=== PATIENT | male | born 1955 | race Caucasian/White ===

== ENCOUNTER 2016-05-23 00:29 | Day surgery (SDC) | payer OTHER ==
[2016-05-23] VITALS (9 sets, daily range): BP systolic 110–123; BP diastolic 70–79; PULSE 56–66; RESP 13–18; O2SAT 94–96
[~2016-05-23 00:29] MED LIST: ASCO500C6 PO; ASPI325T32 PO; ATOR20TA PO; CHOL100043 PO; CLOP75TA3 PO; METO25TA6 PO; MULT-1018 PO; VARE1TAB22 PO
[2016-05-23 11:19] LABS: BASOPHILS % (AUTO) 0.5 % (0-3); EOSINOPHILS % (AUTO) 3.8 % (0-5); MONOCYTES % (AUTO) 6.1 % (4-12); Mean Corpuscular Volume 85.2 fL (81-100); Platelet Count 178 bil/L (150-400)
[2016-05-23 11:31] LABS: INR 0.96 ratio
[2016-05-23] MEDS ORDERED: Heparin 1,000 Unit/mL 10 mL Inj ONE (12:30)
[2016-05-23] MEDS ORDERED: Heparin 5,000 Units/500 mL NS Premix IV ONE (12:30)
[2016-05-23] MEDS ORDERED: fentaNYL-PF 50 mCg/mL 2 mL Inj ONE ×2 (12:47→13:40)
--- NOTE | 2016-05-23 16:12 | DRSVH ---
PROCEDURE: ANGIO,EXTREM BILATERAL (PNL) INDICATIONS: PVD COMPARISON: [facility], MR, MR ANGIO RUNOFF, 05/14/2016, 8:32. [facility], X A, ANGIO,EXTREM BILATERAL (PNL), 01/13/2015, 13:20. Fluoroscopy time: 2.0 minutes Technique: 1. Conscious sedation for 60 minutes. 2. Retrograde access of the bilateral common femoral arteries. 3. Pelvic arteriogram. 4. Balloon angioplasty of the bilateral iliac arteries. 5. Completion arteriogram. 6. Bilateral sheath removal, external closure device placement, and hemostasis. The indications, alternatives, benefits, risks, and complications of the procedure were explained to the patient.. Informed written consent was obtained and placed in the chart. The patient was mary t to the angiography suite, and conscious sedation was administered intravenously by senior living staff, while continuous cardiorespiratory monitoring was performed. Maximum sterile barrier technique was employed per standard protocol, including hand hygiene, cap, ma sk, sterile gown and gloves, and 2% chlorhexidine. Sterile ultrasound probe cover was also utilized. 1% lidocaine was used to anesthetize the skin over the left common femoral artery. Using a micropun cture kit, the left common femoral artery was accessed in a retrograde fashion. 1% lidocaine was used to anesthetize the skin over the right common femoral artery. Using a micropuncture kit and sonograp hic guidance, the right common femoral artery was accessed in a retrograde fashion. The bilateral ochoa ropuncture sheaths were exchanged for 6 Sudanese sheath. A 35 wires were advanced into the abdominal ao rta. A 5 Sudanese pigtail catheter was advanced through the right femoral sheath. The wire was removed, and pelvic arteriogram was performed. Next, balloon angioplasty was performed simultaneously for eric noses within the bilateral common iliac arteries. A 7 mm x 40 mm high pressure balloon was used on th e right and a 8mm by 40 mm high-pressure balloon was used on the left. Angiogram was performed. The s heaths were moved, external closure devices were deployed, and hemostasis was achieved. FINDINGS: Initial arteriogram demonstrates a moderate to high-grade stenosis at the origin of the ri ght common femoral artery and a moderate grade stenosis at the origin of the left common femoral cristobal ry. Upon completion arteriogram. Both stenoses have completely resolved. As before, mural irregularit y is visualized within the infrarenal abdominal aorta. IMPRESSION: 1. Successful balloon angioplasty of focal stenoses within the inflow of the bilateral iliac arteries within the existing iliac stents. Dictated by: Sulema Robins M.D. on 05/23/2016 at 16:04 Approved by: Sulema Robins M.D. on 05/23/2016 at 16:10
--- NOTE | 2016-05-23 16:47 | NUR ---
Pt off bedrest at 16:10.He has ambulated and sat up at bedside. Bilateral groin sites remain intact, no bleeding, oozing or hematoma. discharge instructions reviewed and patient discharged ambulatory with his son present to drive him home.
[2016-06-06] MEDS ORDERED: ROSU5TAB9 PO (19:16)
== END 2016-05-23 23:59 | disposition home or self-care (01) ==
LOC: SOUO 00:29
PROVIDERS: ATTEND Radiology Vascular & Interventional Radiology
DX: T82.856A Stenosis of peripheral vascular stent, initial encounter (principal); I25.10 Atherosclerotic heart disease of native coronary artery without angina pectoris; I73.9 Peripheral vascular disease, unspecified; F17.210 Nicotine dependence, cigarettes, uncomplicated; E78.5 Hyperlipidemia, unspecified; Z95.5 Presence of coronary angioplasty implant and graft; Z79.82 Long term (current) use of aspirin; E78.6 Lipoprotein deficiency; Y84.8 Other medical procedures as the cause of abnormal reaction of the patient, or of later complication, without mention of misadventure at the time of the procedure
CPT/HCPCS: 36415; 37220; 75716; 80048; 85025; 85610; 99152; 99153; C1725; C1760; C1769; J1644; J2250; J3010; Q9967

== ENCOUNTER 2016-06-07 01:13 | Day surgery (SDC) | payer OTHER ==
[~2016-06-07 01:13] MED LIST changes: -ATOR20TA PO; -CLOP75TA3 PO; -METO25TA6 PO; +ROSU5TAB9 PO
--- NOTE | 2016-06-07 12:38 | NUR ---
post op Pt visited for post op visited, VSS on RA, pt states that he is able to walk without the same pain that he had before.
--- NOTE | 2016-06-07 15:09 | DRSVH ---
PROCEDURE: RADIOLOGIST CONSULT FOLLOW UP COMPARISON: [facility], , RADIOLOGIST CONSULT FOLLOW UP, 05/21/2016, 9:54. ID & CHIEF COMPLAINT: Mr. Laguerre is a 60-year-old gentleman who presents to followup after recent bila teral iliac artery angioplasty on 05/23/16. HISTORY OF PRESENT ILLNESS: The patient states that his claudication symptoms have entirely resolved after the bilateral angioplasty. He has been able to walk indefinitely without recurrent cramping or pain in his lower extremities. He denies any hematoma or other complication after the recent bilatera l angioplasty. SOCIAL HISTORY: The patient spelled of cigarettes is noted today. We had a 10 minute discussion about smoking cessation and the importance for his health. ALLERGIES: No known allergies. MEDICATIONS: Medication list on file (in PACS documents) and reviewed. REVIEW OF SYSTEMS: The patient denies any numbness or tingling in his extremities, and a groin hemato ma, any change in bowel habits, any change in mentation. Any respiratory changes, cough, rhonchi, or Rales. He states his claudication symptoms have resolved. FOCUSED PHYSICAL EXAM: Vital signs: Heart rate: 75, respiratory rate: 17, oxygen saturation: 96% on room air, pain: 0/10, temperature: 98 .2F Pulses: Right dorsalis pedis: 1+ Right tibialis posterior: 1+ Left dorsalis pedis: 1 Left tibialis posterior: 1+ IMPRESSION: In summary, the patient has done well after repeat angioplasty of the existing bilateral common iliac stents. He has been advised that if his symptoms recur he may need another angioplasty in the future . Additionally, we discussed the importance of smoking cessation and he claims that he will continue to attempt to stop smoking. Thank you for this interesting consult. Dictated by: Sulema Robins M.D. on 06/07/2016 at 15:04 Approved by: Sulema Robins M.D. on 06/07/2016 at 15:08
== END 2016-06-07 23:59 | disposition home or self-care (01) ==
LOC: SOUO 01:13 → EDSTATUS 09:25 → SOUO 23:59
PROVIDERS: ATTEND Radiology Vascular & Interventional Radiology
DX: Z09 Encounter for follow-up examination after completed treatment for conditions other than malignant neoplasm (principal); Z95.820 Peripheral vascular angioplasty status with implants and grafts